=== PATIENT | male | born 1990 | race Two or more races ===

== ENCOUNTER 2017-07-07 18:07 | Emergency (ER) | payer OTHER ==
[~2017-07-07] VITALS: Ht 177.8 cm; Wt 110.7 kg
[~2017-07-07 18:07] MED LIST: HYDR-3498 PO; IBUP-1542 PO
[2017-07-07 18:10] VITALS: Ht 177.8 cm; Wt 110.7 kg
--- NOTE | 2017-07-07 18:42 | ERD ---
ER Documentation Chief Complaint Chief Complaint Patient he took 2 and a half Kent 10 tablets sooner than he should have. HPI 26-year-old male who is been on chronic pain management for many years now. He usually takes 2 doses of Kent 10/325 3 times a day. He took the second dose approximately 2-1/2 hours earlier than he normally does and became concerned that this may be toxic. Patient denies fevers, chills, shortness of breath, abdominal pain. He denies any suicidal or homicidal thoughts. ROS All systems reviewed and are negative except as per history of present illness. Medications Home Meds Active Scripts Hydrocodone Bit-Acetaminophen* (Kent*) 5-325 Mg Tab, 1 TAB PO Q6 Y for PAIN, # 20 TAB Prov:SHEREE CRUZ SOFTWARE TRA[employer] 06/03/15 Ibuprofen* (Ibuprofen*) 600 Mg Tablet, 600 MG PO Q6H Y for PA, #30 TAB Prov:SHEREE CRUZ SOFTWARE TRAINER 06/03/15 Allergies Allergies: Coded Allergies: No Known Allergy (Unverified , 12/18/11) PMhx/Soc History of Surgery: No Anesthesia Reaction: No Hx Neurological Disorder: No Hx Respiratory Disorders: No Hx Cardiac Disorders: No Hx Psychiatric Problems: No Hx Miscellaneous Medical Probl: No Hx Alcohol Use: No Hx Substance Use: No Hx Tobacco Use: No FmHx non-Contributory for chief complaint Physical Exam Vitals Vital Signs Date Time Temp Pulse Resp B/P Pulse Ox O2 Delivery O2 Flow Rate FiO2 07/07/17 18:10 98.6 66 20 126/76 96 Physical Exam GENERAL: The patient is well developed and appropriate for usual state of health in no apparent distress HEENT: Pupils equal, round, and reactive to light. EOMI. There is no scleral icterus. NECK: C-spine is soft and supple, there is no meningismus. There is no cervical lymphadenopathy. LUNGS: Clear to auscultation bilaterally. There are no rales, wheezes or rhonchi. HEART: Regular rate and rhythm, no murmurs, clicks, rubs or gallops. ABDOMEN: Soft, non-tender, non-distended. There are bowel sounds in all four quadrants. No rebound or guarding. EXTREMITIES: There is no peripheral cyanosis or edema. No focal swelling or erythema. NEURO: The patient moves all four extremities with 5/5 strength. Cranial nerves II - XII are intact. Normal gait. Alert and oriented SKIN: There is no apparent rash or petechiae. HEME/LYMPHATIC: There is no evidence of excessive bruising or lymphedema. PSYCHIATRIC: The patient does not appear anxious or depressed. Procedures/MDM Patient was taken to a room, seen and examined Medical decision makin-year-old male presents to the emergency department with a nontoxic ingestion. At this time, patient shows no evidence of high- risk ingestion and at the dose he is taking, this is nontoxic. Patient has no suicidal or homicidal thoughts and this was completely accidental. Patient appears to be appropriate for outpatient care now that he has been reassured. Departure Diagnosis: Primary Impression: Accidental overdose Condition: Stable Patient Instructions: Overdose, Accidental (Adult) Additional Instructions: There is nothing dangerous about how you took these medications today. SHO CARRILLO Jul 07, 2017 18:41
== END 2017-07-07 18:46 | disposition home or self-care (01) ==
LOC: E/R 18:07
DX: T40.2X1A Poisoning by other opioids, accidental (unintentional), initial encounter (principal)
CPT/HCPCS: 99282